=== PATIENT | male | born 1995 | race Caucasian/White ===

== ENCOUNTER 2021-03-23 13:07 | Outpatient (REF) | payer OTHER, SELFPAY ==
[2021-03-23 15:06] LABS: TSH reflex Free T4 2.65 uIU/mL (0.32-4.0)
[2021-03-23 15:14] LABS: Alanine Aminotransferase 34 U/L (0-40); Albumin Level 4.8 g/dL (3.5-5.0); Alkaline Phosphatase 59 U/L (39-117); Anion Gap 13 (12-20); Aspartate Amino Transferase 32 U/L (5-37); Bilirubin Total 0.9 mg/dL (0.0-1.0); Blood Urea Nitrogen 14 mg/dL (9-16); Calcium 9.6 mg/dL (8.4-10.2); Carbon Dioxide 28 mmol/L (22-29); Chloride 104 mmol/L (96-108); Cholesterol 176 mg/dL; Estimated Glomerular Filt Rate > 60; Glucose Fasting 73 mg/dL (60-99); HDL Cholesterol 67 mg/dL; LDL Cholesterol Calculated 93 mg/dl; Potassium 4.8 mmol/L (3.3-5.1); Sodium 140 mmol/L (135-145); Total Protein 7.8 g/dL (6.5-8.0); Triglycerides 83 mg/dL
== END 2021-03-23 13:08 | disposition home or self-care (01) ==
LOC: HO.HMGCLDS 13:07
PROVIDERS: PCP Nurse Practitioner Family; Visit Provider Nurse Practitioner Family
DX: Z00.00 Encounter for general adult medical examination without abnormal findings (principal)
CPT/HCPCS: 36415; 80053; 80061; 84443

== ENCOUNTER 2021-09-30 11:14 | Outpatient (REF) | payer OTHER, SELFPAY ==
[2021-10-04 15:40] LABS: Transglutaminase IgA <1.0 U/mL
[2021-10-04 22:47] LABS: Immunoglobulin A 145 mg/dL (47-310)
== END 2021-09-30 11:15 | disposition home or self-care (01) ==
LOC: HO.10HDL 11:14
PROVIDERS: PCP Nurse Practitioner Family; Visit Provider Internal Medicine Gastroenterology
DX: K58.9 Irritable bowel syndrome, unspecified (principal)
CPT/HCPCS: 36415; 82784; 83516

== ENCOUNTER 2021-12-28 15:19 | Outpatient (REF) | payer OTHER, SELFPAY ==
[2021-12-28 16:50] LABS: MANUAL DIFF FLAG NO
[2021-12-28 17:11] LABS: Alanine Aminotransferase 205 U/L (0-40); Albumin Level 4.9 g/dL (3.5-5.0); Alkaline Phosphatase 65 U/L (39-117); Anion Gap 14 (12-20); Aspartate Amino Transferase 67 U/L (5-37); Bilirubin Total 0.9 mg/dL (0.0-1.0); Blood Urea Nitrogen 16 mg/dL (9-16); Carbon Dioxide 27 mmol/L (22-29); Chloride 102 mmol/L (96-108); Estimated Glomerular Filt Rate > 60; Glucose Random 76 mg/dL (60-115); Potassium 4.4 mmol/L (3.3-5.1); Sodium 139 mmol/L (135-145); Total Protein 8.6 g/dL (6.5-8.0)
[2021-12-28 17:47] LABS: Basophils Percent Auto 0.4 % (0-2); Eosinophils Percent Auto 0.8 % (0-4); Hematocrit 43.4 % (42.0-52.0); Hemoglobin 14.5 g/dl (14.0-18.0); Imm Gran Abs Auto 0.01 X10*3/uL (0.00-0.03); Imm Gran Pct Auto 0.2 % (0.0-0.4); Lymphocytes Absolute Auto 2.3 X10*3/uL (1.2-4.9); Lymphocytes Percent Auto 46.5 % (20-40); Mean Corpuscular HGB Conc 33.4 g/dl (31.0-36.0); Mean Corpuscular Hemoglobin 29.3 pg (27.0-33.0); Mean Corpuscular Volume 87.7 fL (80.0-98.0); Mean Platelet Volume 9.3 fL (9.4-12.4); Monocytes Absolute Auto 0.5 X10*3/uL (0.1-1.2); Monocytes Percent Auto 9.6 % (2-11); Neutrophils Absolute Auto 2.1 x10*3/uL (2.0-8.3); Neutrophils Percent Auto 42.5 % (45-73); Platelet Count 228 X10*3/uL (160-400); Red Blood Count 4.95 X10*6/uL (4.60-5.80); Red Cell Distribution Width 14.4 % (11.0-16.0); White Blood Count 4.9 X10*3/uL (4.8-10.8)
== END 2021-12-28 15:20 | disposition home or self-care (01) ==
LOC: HO.HMGCLDS 15:19
PROVIDERS: Visit Provider Nurse Practitioner Family
DX: B27.90 Infectious mononucleosis, unspecified without complication (principal)
CPT/HCPCS: 36415; 80053; 85025

== ENCOUNTER 2022-02-07 12:19 | Outpatient (REF) | payer BC, SELFPAY ==
[2022-02-07 14:09] LABS: Alanine Aminotransferase 20 U/L (0-40); Albumin Level 4.8 g/dL (3.5-5.0); Alkaline Phosphatase 51 U/L (39-117); Aspartate Amino Transferase 24 U/L (5-37); Bilirubin Direct 0.3 mg/dL (0.0-0.5)
== END 2022-02-07 12:20 | disposition home or self-care (01) ==
LOC: HO.HMGCLDS 12:19
PROVIDERS: Visit Provider Nurse Practitioner Family
DX: R74.8 Abnormal levels of other serum enzymes (principal)
CPT/HCPCS: 36415; 80076

== ENCOUNTER 2022-12-05 08:10 | Outpatient (REF) | payer BC, SELFPAY ==
[2022-12-05 11:52] LABS: MANUAL DIFF FLAG NO
[2022-12-05 12:03] LABS: Appearance Urine Clear; Color Urine Yellow; Glucose Urine UA Negative (Negative); Leukocyte Esterase Urine Negative (Negative); Nitrite Urine Negative (Negative); Specific Gravity - Urine 1.025 (1.005-1.025); Urine Blood Negative (Negative); Urine Ketones Negative (Negative); Urine Protein Negative (Neg-Trace)
[2022-12-05 12:10] LABS: Basophils Percent Auto 0.5 % (0-2); Eosinophils Absolute Auto 0.2 X10*3/uL (0.0-0.4); Hematocrit 45.3 % (42.0-52.0); Hemoglobin 15.6 g/dl (14.0-18.0); Imm Gran Abs Auto 0.01 X10*3/uL (0.00-0.03); Imm Gran Pct Auto 0.3 % (0.0-0.4); Lymphocytes Absolute Auto 1.9 X10*3/uL (1.2-4.9); Lymphocytes Percent Auto 49.7 % (20-40); Mean Corpuscular HGB Conc 34.4 g/dl (31.0-36.0); Mean Corpuscular Hemoglobin 29.7 pg (27.0-33.0); Mean Corpuscular Volume 86.1 fL (80.0-98.0); Mean Platelet Volume 9.9 fL (9.4-12.4); Monocytes Absolute Auto 0.4 X10*3/uL (0.1-1.2); Monocytes Percent Auto 10.2 % (2-11); Neutrophils Absolute Auto 1.3 x10*3/uL (2.0-8.3); Neutrophils Percent Auto 35.3 % (45-73); Platelet Count 241 X10*3/uL (160-400); Red Blood Count 5.26 X10*6/uL (4.60-5.80); Red Cell Distribution Width 13.3 % (11.0-16.0); White Blood Count 3.7 X10*3/uL (4.8-10.8)
[2022-12-05 12:39] LABS: Alanine Aminotransferase 28 U/L (0-40); Albumin Level 4.8 g/dL (3.5-5.0); Alkaline Phosphatase 49 U/L (39-117); Anion Gap 13 (12-20); Aspartate Amino Transferase 31 U/L (5-37); Bilirubin Total 1.5 mg/dL (0.0-1.0); Blood Urea Nitrogen 16 mg/dL (9-16); Calcium 9.4 mg/dL (8.4-10.2); Carbon Dioxide 27 mmol/L (22-29); Chloride 104 mmol/L (96-108); Cholesterol 181 mg/dL; Estimated Glomerular Filt Rate > 60; Glucose Fasting 84 mg/dL (60-99); HDL Cholesterol 59 mg/dL; LDL Cholesterol Calculated 106 mg/dl; Potassium 4.4 mmol/L (3.3-5.1); Sodium 140 mmol/L (135-145); Total Protein 7.6 g/dL (6.5-8.0); Triglycerides 82 mg/dL
[2022-12-05 12:57] LABS: TSH reflex Free T4 4.71 uIU/mL (0.32-4.0)
[2022-12-05 14:05] LABS: Free T4 (Free Thyroxine) 0.98 ng/dL (0.71-1.85)
== END 2022-12-05 08:11 | disposition home or self-care (01) ==
LOC: HO.HMGCLDS 08:10
PROVIDERS: PCP Nurse Practitioner Family; Visit Provider Nurse Practitioner Family
DX: Z00.00 Encounter for general adult medical examination without abnormal findings (principal)
CPT/HCPCS: 36415; 80053; 80061; 81003; 84439; 84443; 85025

== ENCOUNTER 2023-03-18 07:56 | Outpatient (REF) | payer BC, SELFPAY ==
[2023-03-18 11:15] LABS: MANUAL DIFF FLAG NO
[2023-03-18 11:17] LABS: Basophils Percent Auto 0.7 % (0-2); Eosinophils Absolute Auto 0.2 X10*3/uL (0.0-0.4); Eosinophils Percent Auto 3.7 % (0-4); Hematocrit 43.8 % (42.0-52.0); Hemoglobin 15.2 g/dl (14.0-18.0); Imm Gran Abs Auto 0.01 X10*3/uL (0.00-0.03); Imm Gran Pct Auto 0.2 % (0.0-0.4); Lymphocytes Absolute Auto 1.9 X10*3/uL (1.2-4.9); Lymphocytes Percent Auto 45.1 % (20-40); Mean Corpuscular HGB Conc 34.7 g/dl (31.0-36.0); Mean Corpuscular Hemoglobin 30.7 pg (27.0-33.0); Mean Corpuscular Volume 88.5 fL (80.0-98.0); Mean Platelet Volume 9.9 fL (9.4-12.4); Monocytes Absolute Auto 0.4 X10*3/uL (0.1-1.2); Monocytes Percent Auto 8.5 % (2-11); Neutrophils Absolute Auto 1.7 x10*3/uL (2.0-8.3); Neutrophils Percent Auto 41.8 % (45-73); Platelet Count 207 X10*3/uL (160-400); Red Blood Count 4.95 X10*6/uL (4.60-5.80); Red Cell Distribution Width 13.3 % (11.0-16.0); White Blood Count 4.1 X10*3/uL (4.8-10.8)
[2023-03-18 11:52] LABS: TSH reflex Free T4 4.28 uIU/mL (0.32-4.0)
[2023-03-18 12:23] LABS: Free T4 (Free Thyroxine) 0.85 ng/dL (0.71-1.85)
== END 2023-03-18 07:57 | disposition home or self-care (01) ==
LOC: HO.HMGCLDS 07:56
PROVIDERS: PCP Nurse Practitioner Family; Visit Provider Nurse Practitioner Family
DX: D72.819 Decreased white blood cell count, unspecified (principal); R94.6 Abnormal results of thyroid function studies
CPT/HCPCS: 36415; 84439; 84443; 85025

== ENCOUNTER 2023-10-31 13:17 | Outpatient (AMB) | payer BC, SELFPAY ==
--- NOTE | 2023-10-31 13:19 | AM.OFFWIN_ITS ---
Intake Vital Signs 10/31/23 13:20 Weight 189 lb BP 120/80 Blood Pressure Location Rt brachial Position Sitting Pulse 66 Pulse Source Pulse Oximeter Temp 98.1 F Temp Source Oral Pulse Oximetry (%) 98 Oxygen Delivery Method Room Air Intake Visit Reasons: EP congestion sinus pressure [phone] Intake Note: Patient here for sinus congestion that has been present for about 4 days. Patient Tobacco Use Status: Never used Tobacco Allergies amoxicillin Allergy (Unknown, Verified 10/31/23 13:20) Anaphylaxis penicillin V Allergy (Unknown, Verified 10/31/23 13:20) Anaphylaxis Cefzil Allergy (Unknown, Uncoded 10/31/23 13:20) Anaphylaxis Do you need a note to return to daycare/school/sports/work: No HPI HPI Comments History of Present Illness Details This is a 28-year-old male with no stated past medical history presenting for evaluation of sinus congestion that he has had for the past 4 days. Patient denies having any fevers, chills, ear pain, sore throat, difficulty swallowing or shortness a breath but does report an intermittent cough. Patient has not taken any medication for treatment of his symptoms. [facility] Social History Housing: House Alcohol intake: current Alcohol intake frequency: a few times a month Patient Tobacco Use Status: Never used Tobacco e-Cigarette/Vaping Use: Never Used Second Hand Smoke Exposure: No service: No Current occupational status: employed Current occupation: [employer] Current occupational exposures/hazards: No Cognitive needs: No Hearing needs: No Vision needs: No Review of Systems Const All systems reviewed & are unremarkable except as noted in HPI and below Reports as per HPI Eyes Reports as per HPI ENT Denies otalgia, Denies facial pain, Reports sinus pressure and Denies sore throat Card Reports no additional complaints Resp Reports no additional complaints Reports no additional complaints Musc Reports no additional complaints Skin/Breast Reports system reviewed and no additional complaints, except as documented Neuro Reports no additional complaints Psych Reports no additional complaints Physical Exam Vital Signs: Last Vital Signs Temp 98.1 F 10/31/23 13:20 Pulse 66 10/31/23 13:20 BP 120/80 10/31/23 13:20 Pulse Ox 98 10/31/23 13:20 Oxygen Delivery Method Room Air 10/31/23 13:20 Afebrile Const General: cooperative, healthy appearing, comfortable, no acute distress, well developed, alert and awake; No ill appearing Nutritional Appearance: average body habitus Orientation/consciousness: patient oriented x3 Limitations: no limitations HEENT Head: Yes normal to inspection and Yes normocephalic Ears: hearing grossly normal bilaterally, external ears normal, right TM abnormal (Right TM bulging without erythema; no fluid level), TM normal on the left and EAC's normal General nose exam: Normal external nose present Face and sinus: Yes normal facial exam and Yes sinuses nontender Mouth: Normal oral and palatal mucosa present and moist mucous membranes Teeth and gingiva: dentition normal Throat: Yes posterior oropharynx normal and No postnasal drainage Eyes Eyelids: Yes eyelids normal Conjunctivae: conjunctivae normal Sclerae: sclerae normal Corneas: corneas normal Pupils: Equal, round and reactive pupils present EOM: EOMs intact bilaterally Neck Lymphatic: no lymphadenopathy noted Resp Effort & Inspection: normal respiratory effort, able to speak in complete sentences, no respiratory distress and no use of accessory muscles Auscultation: clear to auscultation bilaterally Cardio Rate: regular rate Rhythm: regular rhythm Skin General skin exam: no rashes or lesions noted Neuro General: patient oriented x3 Cranial nerves: Yes Equal, round and reactive pupils present Psych Appearance: grossly normal Mental Status: mental status grossly normal Insight: Good insight present (Psych) Judgement: Good judgement present (Psych) Assessment & Plan Assessment & Plan (1) Acute sinusitis: Comment: No indication symptoms are bacterial in nature; patient is afebrile. Code(s): J01.90 - Acute sinusitis, unspecified Qualifiers: Recurrence: non-recurrent Sinusitis location: frontal Qualified Code(s): J01.10 - Acute frontal sinusitis, unspecified Plan: Ibuprofen or Aleve as needed; nasal saline spray daily. Coding Level of Care Code New Pt Level 3 (67276) Diagnoses Acute non-recurrent frontal sinusitis J01.10 Recurrence: non-recurrent Sinusitis location: frontal Time Spent (min) 20
[2023-10-31 13:20] VITALS: BP 120/80; PULSE 66; TEMP 36.7; O2SAT 98
== END 2023-10-31 13:55 | disposition home or self-care (01) ==
PROVIDERS: PCP Nurse Practitioner Family; Visit Provider Physician Assistant
DX: J01.10 Acute frontal sinusitis, unspecified (principal)
CPT/HCPCS: 99203

== ENCOUNTER 2024-03-13 08:09 | Outpatient (AMB) | payer BC, SELFPAY ==
--- NOTE | 2024-03-13 08:10 | MHC.PC.OV ---
Vital Signs 03/13/24 08:12 Weight 179 lb BP 110/68 Blood Pressure Location Rt brachial Position Sitting Pulse 53 Pulse Source Pulse Oximeter Pulse Oximetry (%) 100 Oxygen Delivery Method Room Air Intake Visit Reasons: Annual Pe resched Intake Note: Patient here for physical exam. Allergies amoxicillin Allergy (Unknown, Verified 03/13/24 08:18) Anaphylaxis penicillin V Allergy (Unknown, Verified 03/13/24 08:18) Anaphylaxis Cefzil Allergy (Unknown, Uncoded 03/13/24 08:18) Anaphylaxis Medication List - Last Reconciled 03/13/24 by FABIEN Chew escitalopram oxalate 10 mg PO DAILY 90 days Tobacco use date assessed: 03/13/24 Dental Screening Dental Screen Date: 03/13/24 Did you have a dental visit in the last 12 months?: Yes Did you have a dental problem in the last 6 months where you did not have access to dental care?: No Was dental information given to patient?: Patient has dentist HPI Annual Pe resched HPI Details Pt is here for a PE. Labs have been ordered. ON LICENSE OF [facility] Social History Housing: House Alcohol intake: current Alcohol intake frequency: a few times a month Patient Tobacco Use Status: Never used Tobacco e-Cigarette/Vaping Use: Never Used Second Hand Smoke Exposure: No service: No Current occupational status: employed Current occupation: [employer] Current occupational exposures/hazards: No Cognitive needs: No Hearing needs: No Vision needs: No Family/Social History Household Members: father: MS Questionnaire PHQ-9 Over the last 2 weeks, how often have you been bothered by any of the following problems? 1. Little interest or pleasure in doing things: not at all 2. Feeling down, depressed, or hopeless: not at all 3. Trouble falling or staying asleep, or sleeping too much: not at all 4. Feeling tired or having little energy: several days 5. Poor appetite or overeating: not at all 6. Feeling bad about yourself - or that you are a failure or have let yourself or your family down: not at all 7. Trouble concentrating on things, such as reading the newspaper or watching television: more than half the days 8. Moving or speaking so slowly that other people could have noticed. Or the opposite - being so fidgety or restless that you have been moving around a lot more than usual: not at all 9. Thoughts that you would be better off or of hurting yourself in some way: not at all Total score: 3 Depression Screening Interpretation: Negative Depression Screening Done: Yes 60358 - PHQ-9 Billing: Yes Source: Developed by Drs. Gonzalo Whiting, Nona Salinas, Scotty Coates and colleagues, with an educational karina from [employer]. Thrive Questionnaire Date Thrive assessed: 12/05/22 I am a: Patient What is your living situation today?: I have a steady place to live Within the past 12 months, did the food you bought not last and you didn't have the money to get more?: Never true Within the past 12 months, did you worry whether your food would run out before you got money to buy more?: Never true Do you have trouble paying for medicines?: No Do you have trouble getting transportation to medical appointments?: No Do you have trouble paying your heating and electricity bill?: No Do you have trouble taking care of your child, family member or friend?: No Do you have trouble with day-to-day activities such as bathing, preparing meals, shopping, managing finances, etc.?: No Are you currently unemployed and looking for a job?: No Are you interested in more education?: No Currently or been in a relationship where the following occur: no concerns reported and I choose not to answer this question THRIVE Score: 0 AUDIT C Alcohol Use Questionnaire (AUDIT-C) 1. How often do you have a drink containing alcohol?: 2-4 times a month 2. How many drinks containing alcohol do you have on a typical day when you are drinking?: 3 or 4 3. How often do you have six or more drinks on one occasion?: Less than monthly Total Score: 4 FUAD-7 AMB Questionnaire FUAD-7 Date FUAD - 7 assessed: 03/13/24 Feeling nervous, anxious, or on edge: 1 = Several days Not being able to stop or control worryin = Not at all Worrying too much about different things: 1 = Several days Trouble relaxin = Not at all Being so restless that it is hard to sit still: 1 = Several days Becoming easily annoyed or irritable: 0 = Not at all Feeling afraid as if something awful might happen: 0 = Not at all Total FUAD-7 score (0-4 normal; 5-9 mild; 10-14 moderate; 15-21 severe): 3 Source: Developed by Drs. Gonzalo Whiting, Nona Salinas, Scotty Coates and colleagues, with an educational karina from [employer]. FUAD-7 Assessment Billing FUAD-7 Assessment Tool: FUAD-7 Assessment 54460 Review of Systems Const Denies chills and Denies fever(s) Eyes Denies blurry vision ENT Denies vertigo, Denies dizziness and Denies sore throat Card Denies chest pain at rest, Denies chest pain with activity, Denies diaphoresis, Denies dyspnea and Denies dyspnea on exertion Resp Denies cough, Denies dyspnea, Denies dyspnea on exertion and Denies wheezing GI Denies abdominal pain, Denies melena, Denies hematochezia, Denies constipation, Denies diarrhea and Denies loose stools Denies hematuria Musc Denies numbness and Denies tingling Skin/Breast Denies lesions Neuro Denies vertigo, Denies dizziness, Denies numbness and Denies tingling Psych Denies anxiety, Denies depression, Denies homicidal ideation, Denies suicidal ideation and Denies other (substance abuse) Aller/Immun Denies wheezing Physical exam (Primary Care) Vital Signs: Last Vital Signs Pulse 53 03/13/24 08:12 BP 110/68 03/13/24 08:12 Pulse Ox 100 03/13/24 08:12 Oxygen Delivery Method Room Air 03/13/24 08:12 Tobacco/Smoking Status: Tobacco use Status Tobacco use date assessed 03/13/24 03/13/24 08:15 Patient Tobacco Use Status Never used Tobacco 03/13/24 08:12 e-Cigarette/Vaping Use Never Used 03/13/24 08:12 Depression Screening Interpretation: Negative Thrive Assessment: Date of Thrive Assessment Date Thrive assessed 12/05/22 03/13/24 08:12 Currently or been in a relationship where the following occur: no concerns reported and I choose not to answer this question Const General: cooperative Nutritional Appearance: well nourished Orientation/consciousness: patient oriented x3 HENMT Other: cerumen noted to left ear, after ear lavage slight residual cerumen Head: Yes normal to inspection, Yes normocephalic and Yes atraumatic Ears: TM normal on the right Eyes General: appearance normal, both eyes and all related structures Alignment and Position: alignment normal and position normal Neck Neck: Yes normal visual inspection and Yes no lymphadenopathy Thyroid: Thyroid normal Resp Effort & Inspection: normal respiratory effort Auscultation: clear to auscultation bilaterally Cardio Rate: regular rate Rhythm: regular rhythm Heart sounds: S1 normal heart sound present, S2 normal heart sound present and no murmurs GI Palpation (GI): Soft to palpation and nontender Auscultation: normal bowel sounds Male General Exam: Yes normal external exam Penis: normal penis Scrotum: scrotum normal, testes descended bilaterally and no inguinal hernias Testes: no testicular mass Skin Rashes: no rashes Neuro General: patient oriented x3, moves all extremities, no focal motor deficits and deep tendon reflexes 2+ bilaterally Romberg Test: Negative Psych Appearance: grossly normal Mental Status: mental status grossly normal Speech and movement: Normal speech and movement present Affect: normal affect Attitude: cooperative Thought process: Normal thought process present Thought content: Normal thought content present Insight: Good insight present (Psych) Judgement: Good judgement present (Psych) Office Procedures Cerumen Removal From which ear canal was the cerumen removed: left Removal: irrigation Notes: patient tolerated procedure well, no complications and ear canal clear (scant residual cerumen) 98706-[id number] Irrigation/Lavage Assessment and Plan Assessment & Plan (1) Physical exam: Code(s): Z00.00 - Encounter for general adult medical examination without abnormal findings Plan: Labs already ordered (2) Cerumen debris on tympanic membrane: Code(s): H61.20 - Impacted cerumen, unspecified ear Plan: scant residual cerumen(left), recommended ear wax removal kit. Plan The patient agreed to the use of a medical leader for this encounter. Scribed for FABIEN Vila by Jessi Rinaldi medical leader, on 03/13/2024 at 08:20 EST. Coding Level of Care Code Est Pt Prev Care 18-39y(26791) Diagnoses Physical exam Z00.00 Cerumen debris on tympanic membrane H61.20 CPT Codes Office Procedure - CPT: 54966-Peb Irrigation/Lavage ([id number]) Additional Codes FUAD-7 Assessment Billing - FUAD-7 Assessment Tool: FUAD-7 Assessment 33384 ([id number])
[2024-03-13 08:12] VITALS: BP 110/68; PULSE 53; O2SAT 100
== END 2024-03-13 08:50 | disposition home or self-care (01) ==
PROVIDERS: PCP Nurse Practitioner Family; Visit Provider Nurse Practitioner Family
DX: Z00.00 Encounter for general adult medical examination without abnormal findings (principal); H61.22 Impacted cerumen, left ear
CPT/HCPCS: 69209; 99395

== ENCOUNTER 2024-03-13 08:52 | Outpatient (REF) | payer BC, SELFPAY ==
[2024-03-13 10:17] LABS: MANUAL DIFF FLAG NO
[2024-03-13 10:40] LABS: Appearance Urine Clear; Color Urine Yellow; Glucose Urine UA Negative (Negative); Leukocyte Esterase Urine Negative (Negative); Nitrite Urine Negative (Negative); Urine Blood Negative (Negative); Urine Ketones Negative (Negative); Urine Protein Negative (Neg-Trace)
[2024-03-13 10:47] LABS: Basophils Percent Auto 0.8 % (0-2); Eosinophils Absolute Auto 0.1 X10*3/uL (0.0-0.4); Eosinophils Percent Auto 3.2 % (0-4); Hematocrit 45.9 % (42.0-52.0); Hemoglobin 15.4 g/dl (14.0-18.0); Imm Gran Abs Auto 0.01 X10*3/uL (0.00-0.03); Imm Gran Pct Auto 0.3 % (0.0-0.4); Lymphocytes Absolute Auto 1.6 X10*3/uL (1.2-4.9); Lymphocytes Percent Auto 41.7 % (20-40); Mean Corpuscular HGB Conc 33.6 g/dl (31.0-36.0); Mean Corpuscular Hemoglobin 29.1 pg (27.0-33.0); Mean Corpuscular Volume 86.6 fL (80.0-98.0); Mean Platelet Volume 9.6 fL (9.4-12.4); Monocytes Absolute Auto 0.3 X10*3/uL (0.1-1.2); Monocytes Percent Auto 7.8 % (2-11); Neutrophils Absolute Auto 1.7 x10*3/uL (2.0-8.3); Neutrophils Percent Auto 46.2 % (45-73); Platelet Count 244 X10*3/uL (160-400); Red Cell Distribution Width 13.4 % (11.0-16.0); White Blood Count 3.7 X10*3/uL (4.8-10.8)
[2024-03-13 10:56] LABS: Alanine Aminotransferase 25 U/L (0-40); Albumin Level 4.7 g/dL (3.5-5.0); Alkaline Phosphatase 45 U/L (39-117); Anion Gap 10 (12-20); Aspartate Amino Transferase 24 U/L (5-37); Bilirubin Total 0.9 mg/dL (0.0-1.0); Blood Urea Nitrogen 17 mg/dL (9-16); Calcium 9.8 mg/dL (8.4-10.2); Carbon Dioxide 29 mmol/L (22-29); Chloride 106 mmol/L (96-108); Cholesterol 191 mg/dL (<200); Estimated Glomerular Filt Rate > 60; Glucose Fasting 82 mg/dL (60-99); HDL Cholesterol 57 mg/dL (>40); LDL Cholesterol Calculated 118 mg/dL (<100); Potassium 4.7 mmol/L (3.3-5.1); Sodium 140 mmol/L (135-145); Total Protein 7.8 g/dL (6.5-8.0); Triglycerides 84 mg/dL (<150)
[2024-03-13 11:16] LABS: TSH reflex Free T4 3.01 uIU/mL (0.32-4.0)
[2024-03-14 18:44] LABS: Thyroid Peroxidase Antibodies 1 IU/mL (<9)
== END 2024-03-13 08:53 | disposition home or self-care (01) ==
LOC: HO.HMGCLDS 08:52
PROVIDERS: PCP Nurse Practitioner Family; Visit Provider Nurse Practitioner Family
DX: Z00.00 Encounter for general adult medical examination without abnormal findings (principal); R79.89 Other specified abnormal findings of blood chemistry; D72.819 Decreased white blood cell count, unspecified
CPT/HCPCS: 36415; 80053; 80061; 81003; 84443; 85025; 86376

== ENCOUNTER → 2024-04-08 12:58 | Outpatient (BNV) | payer BC, SELFPAY | PROVIDERS: PCP Nurse Practitioner Family; Referring Provider Nurse Practitioner Family; Visit Provider Internal Medicine | DX: D72.819 Decreased white blood cell count, unspecified (principal) | CPT/HCPCS: 99204 ==

== ENCOUNTER 2025-02-26 12:21 | Outpatient (REF) | payer BC, SELFPAY ==
--- OUTSIDE RECORDS SUMMARY | 2025-02-26 13:12 | XMS_ITS | Patient Health Record ---
Author Organization [facility] Address [address] [place] [phone] Care Team Providers Care Cushion Cover Inspector Name Role Phone Bart HOWELL, [facility] Primary [facility] Provider Gerald Hays Jr Allergies Allergen (clinical drug ingredient) Drug/Non Drug Allergy documented on EMR Reaction Allergy Type Onset Date Status Penicillin Unknown Drug Allergy Active Cefzil Unknown Drug Allergy Active Reason For Referral No Information Medications Medication SIG (Take, Route, Frequency, Duration) Notes Start Date End Date Status Probiotic - as directed Orally Active MiraLax - 1 packet mixed with 8 ounces of fluid Orally as needed Active Dicyclomine HCl 20 MG 1 tablet Orally 2- 4 times a day Not-Taking Multivitamin Adult - as directed Orally Active Escitalopram Oxalate 10 MG TK 1 T PO QD Oral for 30 Active Vitamin D 2000 UNIT 1 tablet Orally Once a day for 30 day(s) Active Immunizations Vaccine Route Administration Date Status Comme nts Influenza Unknown 08/29/2018 Administered Influenza Unknown 07/09/2019 Administered Influenza Unknown 08/31/2022 Administered Influenza Unknown 09/27/2021 Refused Influenza Unknown 11/01/2023 Refused Social History Tobacco Use: Social History Observation Description Date Details (start date - stop date) Never Smoker NA - NA Tobacco Use/Smoking Question Answer Notes Patient is a nonsmoker Alcohol Screen Question Answer Notes Did you have a drink containing alcohol in the p ast year? No Points 0 Interpretation Negative Section Notes: 04/03/19 he recently graduate d from [employer] with a degree in finance and business management. He was looking for a job in the [facility] and is moving to [place] in April. 04/03/19 he recently graduate d from [employer] with a degree in finance and [employer] management. He was looking for a job in the [facility] and is moving to [place] in April./ update 03/2020 works in [employer] 04/03/19 he recently graduate d from [employer] with a degree in [place] and [employer] management. He was looking for a job in the [facility] and is moving to [place] in April./ update 03/2020 works in [place] 04/03/19 he recently graduate d from [employer] with a degree in [place] and [employer] management. He was looking for a job in the [facility] and is moving to [place] in April./ update 03/2020 works in [place] 04/03/19 he graduated from [employer] with a degree in [place] and [employer] management. He was looking for a job in the [facility] and is moving to [place] in April./ update 03/2020 works in [place]. 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 Problems Problem Type SNOMED Code ICD Code Onset Dates Problem Status W/U Status Risk Notes Problem [id number] Right lower quadrant pain (R10.31) Active confirmed Problem [id number] Abdominal pain, right upper quadrant (R10.11) Active confirmed Problem [id number] Irritable bowel syndrome with constipation (K58.1) Active confirmed Problem 24046966 Irritable bowel syndrome with both constipation and diarrhea (K58.2) Active confirmed Encounters Encounter Location Date Provider Diagnosis [facility] [address] [facility] [address] [place] [phone] 02/24/2025 Gerald Holbrook Jr Abdominal pain R10.9 Assessments Encounter Date Diagnosis (ICD Code) Assessment Notes Treatment Notes Treatment Clinical Notes Section Notes 02/24/2025 Abdominal pain (ICD-10 - R10.9) Plan Of Treatment Pending Test Test Name Order Date LIVER PROFILE 02/24/2025 CRP 02/24/2025 CBC w/o DIFF 02/24/2025 SED RATE (ESR) 02/24/2025 US ABD 02/24/2025 Lipase 02/24/2025 Next Appt Details Provider Name:Gerald abebe Jr, 10/29/2025 09:00:00 AM, [address], [address], [place], [address], Insurance Providers Payer Name Payer Address Payer Phone Subscriber Number Group Number Insured Name Patient Relationship to Insured Coverage Start Date Coverage End Date [facility] [address] [place], [place] [phone] [phone] [id number] CAROLS SCHILLING Self - patient is the insured Medical (General) History Medical History History ICD Code Irritable bowel syndrome pneumonia x2 2018 Surgical History Surgery Date(Month/Year) tonsillectomy
--- OUTSIDE RECORDS SUMMARY | 2025-02-26 13:13 | XMS_ITS | Clinical Summary ---
Author Organization [facility] ity Address [address] [place] [address] Care Team Providers Care Target Setter Name Role Phone Unavailable Primary Care Provider Unavailabl e Social History Tobacco Use Types Packs/Day Years Used Date Smoking Tobacco: Never Assessed Sex and Gender Information Value Date Recorded Sex Assigned at Not on file Legal Sex Male 5:49 AM EST Gender Identity Not on file Sexual Orientation Not on file Plan of Treatment Health Maintenance Due Date Last Done Comments DTaP,Tdap,and Td Vaccines (1 - Tdap) 2015 Hepatitis B Vaccines (1 of 3 - 19+ 3-dose series) 2015 COVID-19 Vaccine (2023-2 5 season) 2024 Influenza Vaccine (Season Ended) 2025 HIB Vaccines Aged Out No longer eligi ble based on patient's age to complete this topic HPV Vaccines Aged Out No longer eligi ble based on patient's age to complete this topic Hepatitis A Vaccines Aged Out No long er eligible based on patient's age to complete this topic IPV Vaccines Aged Out No longer eligi ble based on patient's age to complete this topic MMR Vaccines Aged Out No longer eligi ble based on patient's age to complete this topic Meningococcal ACWY Vaccine Aged Out N o longer eligible based on patient's age to complete this topic Meningococcal B Vaccine Aged Out No l onger eligible based on patient's age to complete this topic Pneumococcal Vaccine: Pediat rics (0 to 5 Years) and At-Risk Patients (6 to 64 Years) Aged Out No longer eligible b ased on patient's age to complete this topic RSV Immunization Patients Un breezy 20 months Aged Out No longer eligible b ased on patient's age to complete this topic Varicella Vaccines Aged Out No longer eligible based on patient's age to complete this topic
--- OUTSIDE RECORDS SUMMARY | 2025-02-26 13:13 | XMS_ITS ---
Author Organization [facility] Address [address] [place] [address] [place] [phone] Care Team Providers Care Facility Planner Name Role Phone Bart HOWELL, [facility] Primary [facility] Provider Berenice Holbrook Jr, Gerald Nicholas REASON FOR VISIT please update the patient's insurance Encounters Encounter Location Date Provider Diagnosis [facility] [address] [place] [address] [place] [phone] 10/18/2023 Gerald Holbrook Jr Plan Of Treatment Next Appt Details Provider Name:Gerald abebe Jr, 10/29/2025 09:00:00 AM, [address] [place] [address], [address], [place], [phone], Progress Notes * CARLOS SCHILLINGDOB:1995 ( 28 yo M)Acc No.[id number]:10/18/2023 Patient:?CARLOS SCHILLING :1995???Age:28 Y???Sex:Male Address:[address] [place] [address], [id number] * true * Date:? Generated for Jasoni brayan/Esteban/eTransmitting on:?02/26/2025 01:13 PM EDT
--- OUTSIDE RECORDS SUMMARY | 2025-02-26 13:13 | XMS_ITS ---
Author Organization [facility] Address [address] [place] [address] Care Team Providers Care Licensed Psychologist Manager Name Role Phone Bart HOWELL, [facility] Primary Care Provider Gerald Hays Jr Unavailable Allergies Allergen (clinical drug ingredient) Drug/Non Drug Allergy documented on EMR Reaction Allergy Type Onset Date Status Penicillin Unknown Drug Allergy Active Cefzil Unknown Drug Allergy Active REASON FOR VISIT Patient presents today for IBS Medications Medication SIG (Take, Route, Frequency, Duration) Notes Start Date End Date Status Probiotic - as directed Orally Active Dicyclomine HCl 20 MG 1 tablet Orally 2- 4 times a day Not-Taking Multivitamin Adult - as directed Orally Active Escitalopram Oxalate 10 MG TK 1 T PO QD Oral for 30 Active Vitamin D 2000 UNIT 1 tablet Orally Once a day for 30 day(s) Active MiraLax - 1 packet mixed with 8 ounces of fluid Orally as needed Active Immunizations Vaccine Route Administration Date Status Comme nts Influenza Unknown 11/01/2023 Refused Social History Tobacco Use: Social History Observation Description Date Details (start date - stop date) Never Smoker NA - NA Tobacco Use/Smoking Question Answer Notes Patient is a nonsmoker Alcohol Screen Question Answer Notes Did you have a drink containing alcohol in the p ast year? No Points 0 Interpretation Negative Section Notes: 04/03/19 he graduated from [employer] with a degree in finance and business management. He was looking for a job in the [place] area and is moving to [place] in April./ update 03/2020 works in [place]. 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 Vital Signs Temperature 97.5 degrees Fahrenheit 11/01/19 Blood pressure systolic 000 mm Hg 11/01/19 24 Blood pressure diastolic 00 mm Hg 024 Height 71 in 11/01/2023 Weight 182 lbs 11/01/2023 BMI 25.38 kg/m2 11/01/2023 Encounters Encounter Location Date Provider Diagnosis [facility] [address] [place] [address] 11/01/2023 Gerald Holbrook Jr Irritable bowel syndrome with both constipation and diarrhea K58.2 Assessments Encounter Date Diagnosis (ICD Code) Assessment Notes Treatment Notes Treatment Clinical Notes Section Notes 11/01/2023 Irritable bowel syndrome with both constipation and diarrhea (ICD-10 - K58.2) Irritable bowel syndrome material was printed At this time, he is doing well. He will continue his present regimen. We discussed diet. We have made no changes in his medications and no laboratory studies are necessary at this time. Followup in 2 years. Plan Of Treatment Treatment Notes Assessment Notes Irritable bowel syndrome wit h both constipation and diarrhea Irritable bowel syndrome material was printed Next Appt Details Follow Up: 2 years, Reason: Provider Name:Gerald abebe Jr, 10/29/2025 09:00:00 AM, [address], [address], [place], [address], Progress Notes * GREGG SCHILLINGB:1995 ( 28 yo M)Acc No.[id number]:11/01/2023 Progress Notes Patient:?CARLOS SCHILLING Provider:?Gerald Holbrook MD :1995???Age:28 Y???Sex:Male Sushant e:11/01/2023 Address:[address] [place] [address] Pcp:Jane Arriaga MD Subjective: * Chief Complaints: * ???1. Patient presents today for IBS. * HPI: ???New symptom(s):? The patient is a pleasant 28-year-old man seen today in followup of irritable bowel syndrome. He was last seen in October 2022. Since that time, he's been doing well. He continues on probiotics but has not had to use dicyclomine. He reports occasional flareups of symptoms with mucus in the bowel movements and some constipation. Overall his stomach is generally good over the last year. He's had no problems with rectal bleeding, rectal pain, abdominal pain or other change in his bowel habits. He tries to follow a good diet. He is exercising and weight has come down about 10 pounds from last year. * Medical History:?Irritable b owel syndrome, Pneumonia x2 2018. * Surgical History:?tonsillect dana . * Family History:?Father: irma gallego MS.?Mother: alive.?Maternal Grand Father: alive, diagnosed with Colon cancer.? sister IBD possible celiac. No family history of liver cancer. * Social History:?Tobacco Use:?Tobacco Use/Smoking?Patient is a?nonsmoker.?Drugs/Alcohol:?Alcohol Screen?Did you have a drink containing alcohol in the past year??No,?Points?0,?Interpretation?Negative.?Miscellaneous:?Marital status: single. Occupation: business finance. ???04/03/19 he graduated from [employer] with a degree in finance and business management. He was looking for a job in the [place] area and is moving to [place] in April./ update 03/2020 works in [place]. 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 * Medications:?Taking MiraLax - Packet 1 packet mixed with 8 ounces of fluid Orally as needed, Taking Probiotic - Capsule as directed Orally , Taking Vitamin D 2000 UNIT Tablet 1 tablet Orally Once a day, Taking Escitalopram Oxalate 10 MG Tablet TK 1 T PO QD Oral , Taking Multivitamin Adult - Tablet as directed Orally , Not-Taking/PRN Dicyclomine HCl 20 MG Tablet 1 tablet Orally 2-4 times a day, Medication List reviewed and reconciled with the patient * Allergies:?Penicillin, Cefzi l. Objective: * Vitals:?Wt: 182 lbs, Ht: 71 in, BMI:25.38 Index, BP: 000/00 mm Hg, Temp: 97.5. * Examination: ???General Examination: ???On examination today, he appears well. Skin is anicteric. Lungs are clear. Heart shows regular rate and rhythm. Abdomen is soft without focal masses or tenderness. Extremities are without edema. Assessment: * Assessment: 1.?Irritable bowel syndrome with both constipation and diarrhea - K58.2 (Primary)? At this time, he is doing we ll. He will continue his present regimen. We discussed diet. We have made no changes in his medications and no laboratory studies are necessary at this time. Followup in 2 years. Plan: * Treatment: * Immunizations:? Influenza (Not administered - Refused: Patient decision) * Procedure Codes:?G9903 Pt sc rn tbco id as non user, G9745 DOC RSN FOR NOT SCREEN/REC F/U HBP * Preventive Medicine:? ??Counseling:?Care goal follow-up plan:?Above Normal BMI Follow-up?Giving encouragement to exercise,?BMI management provided?Yes.? * Follow Up:?2 years * * Sign off status: Completed true * Provider:?Gerald Holbrook MD Date:?0 11/01/2023 Generated for Artisofthipolito schmidt/Esteban/eTransmitting on:?02/26/2025 01:12 PM EDT History and Physical Notes * HPI (History of Present Illness) Category Sub-Category Detail Notes Category Not es New symptom(s) The patient i s a pleasant 28-year-old man seen today in followup of irritable bowel syndrome. He was last seen in October 2022. Since that time, he's been doing well. He continues on probiotics but has not had to use dicyclomine. He reports occasional flareups of symptoms with mucus in the bowel movements and some constipation. Overall his stomach is generally good over the last year. He's had no problems with rectal bleeding, rectal pain, abdominal pain or other change in his bowel habits. He tries to follow a good diet. He is exercising and weight has come down about 10 pounds from last year. Examination Category Sub-Category Detail Notes Category Not es General Examination On exami nation today, he appears well. Skin is anicteric. Lungs are clear. Heart shows regular rate and rhythm. Abdomen is soft without focal masses or tenderness. Extremities are without edema.
--- OUTSIDE RECORDS SUMMARY | 2025-02-26 13:13 | XMS_ITS ---
Author Organization [facility] Address [address] [place] [address] [place] [address] Care Team Providers Care Chro Name Role Phone Bart HOWELL, [facility] Primary Care Provider Berenice Holbrook Jr, Gerald Nicholas REASON FOR VISIT RLQ pain Encounters Encounter Location Date Provider Diagnosis [facility] [address] [place] [address] [place] [address] 02/24/2025 Gerald Holbrook Jr Abdominal pain R10.9 [...] Provider Name:Gerald abebe Jr, 10/29/2025 09:00:00 AM, [address] [place] [address], [address], [place], [address], Progress Notes * BERTHA SCHILLING:1995 ( 29 yo M)Acc No.[id number]:02/24/2025 Patient:?CARLOS SCHILLING :1995???Age:29 Y???Sex:Male Address:[address] [place] [address], [address] Subjective: * Chief Complaints: * ???RLQ pain * Medical History:? * Surgical History:? * Hospitalization/Major Diagno stic Procedure:? * Medications:? Objective: * Vitals:? * Physical Examination:? Assessment: * Assessment: 1.?Abdominal pain - R10.9 (P rimary)??? Plan: * Treatment: * * Procedure Codes:? * true * Date:? Generated for Renetta schmidt/Esteban/eTjfsmitting on:?02/26/2025 01:13 PM EDT
[2025-02-26 16:32] LABS: MANUAL DIFF FLAG NO
[2025-02-26 16:36] LABS: Basophils Percent Auto 0.8 % (0-2); Eosinophils Absolute Auto 0.1 X10*3/uL (0.0-0.4); Eosinophils Percent Auto 2.7 % (0-4); Hematocrit 42.5 % (42.0-52.0); Hemoglobin 14.7 g/dl (14.0-18.0); Imm Gran Abs Auto 0.01 X10*3/uL (0.00-0.03); Imm Gran Pct Auto 0.3 % (0.0-0.4); Lymphocytes Absolute Auto 1.5 X10*3/uL (1.2-4.9); Lymphocytes Percent Auto 40.9 % (20-40); Mean Corpuscular HGB Conc 34.6 g/dl (31.0-36.0); Mean Corpuscular Hemoglobin 29.8 pg (27.0-33.0); Mean Platelet Volume 9.9 fL (9.4-12.4); Monocytes Absolute Auto 0.3 X10*3/uL (0.1-1.2); Monocytes Percent Auto 8.3 % (2-11); Neutrophils Absolute Auto 1.8 x10*3/uL (2.0-8.3); Platelet Count 241 X10*3/uL (160-400); Red Blood Count 4.94 X10*6/uL (4.60-5.80); Red Cell Distribution Width 13.4 % (11.0-16.0); White Blood Count 3.7 X10*3/uL (4.8-10.8)
[2025-02-26 17:01] LABS: Alanine Aminotransferase 32 U/L (0-40); Alkaline Phosphatase 49 U/L (39-117); Aspartate Amino Transferase 32 U/L (5-37); Bilirubin Direct 0.3 mg/dL (0.0-0.5); Bilirubin Total 0.7 mg/dL (0.0-1.0); C Reactive Protein < 0.04 mg/dL (< or = 0.50); Lipase 22 U/L (8-78); Total Protein 7.8 g/dL (6.5-8.0)
[2025-02-26 17:33] LABS: Erythrocyte Sedimentation Rate 2 MM/HR (0-15)
== END 2025-02-26 12:22 | disposition home or self-care (01) ==
LOC: HO.HMGCLDS 12:21
PROVIDERS: PCP Nurse Practitioner Family; Visit Provider Internal Medicine Gastroenterology
DX: R10.9 Unspecified abdominal pain (principal)
CPT/HCPCS: 36415; 80076; 83690; 85025; 85652; 86140

== ENCOUNTER → 2025-03-21 11:30 | Outpatient (BNV) | payer BC, SELFPAY | PROVIDERS: PCP Nurse Practitioner Family; Visit Provider Radiology Diagnostic Radiology | DX: R10.9 Unspecified abdominal pain (principal) | CPT/HCPCS: 76700 ==

== ENCOUNTER 2025-03-21 11:32 | Outpatient (REF) | payer BC, SELFPAY ==
--- NOTE | ~2025-03-21 | US_ITS ---
CLINICAL HISTORY: abd. pain US abdomen complete Comparison: None Findings: The visualized pancreas is normal. The aorta and inferior vena cava are normal caliber. The liver is normal in size and echotexture. There is no intrahepatic bile duct dilatation. The common duct is 1.6 mm in diameter. The gallbladder is normal. There is no sonographic Pereyra sign. The main portal vein is antegrade. The right kidney is 12.0 cm in length. The left kidney is 10.7 cm in length. The spleen is normal. No ascites. IMPRESSION: 1. Normal complete abdominal ultrasound. This document has been electronically signed by: Deep Lanza MD on 03/22/2025 12:51:54
--- OUTSIDE RECORDS SUMMARY | 2025-03-21 12:28 | XMS_ITS | Patient Health Record ---
Author Organization [facility] Address [address] [place] [address] Care Team Providers Care Electronic Specialist Name Role Phone Bart HOWELL, [facility] Primary Care Provider Gerald Hays Jr Allergies Allergen (clinical drug ingredient) Drug/Non Drug Allergy documented on EMR Reaction Allergy Type Onset Date Status Penicillin Unknown Drug Allergy Active Cefzil Unknown Drug Allergy Active Results Component Value Reference Range Notes Lipase Reviewed date:02/28/2025 04:01:51 PM Interpretation: Performing Lab:[facility], [address] [place] [phone] Notes/Report: Lipase 22 8-78 U/L Complete Blood Count Auto Di ff Reviewed date:02/28/2025 03:59:06 PM Interpretation: Performing Lab:[facility], [address] [place] [phone] Notes/Report: White Blood Count 3.7 4.8-10.8 X10*3/uL Red Blood Count 4.94 4.60-5.80 X10*6/uL Hemoglobin 14.7 14.0-18.0 g/dl Hematocrit 42.5 42.0-52.0 % Mean Corpuscular Volume 86.0 80.0-98.0 fL Mean Corpuscular Hemoglobin 29.8 27.0-33.0 pg Mean Corpuscular HGB Conc 34.6 31.0-36.0 g/dl Red Cell Distribution Width 13.4 11.0-16.0 % Platelet Count 241 160-400 X10*3/uL Mean Platelet Volume 9.9 9.4-12.4 fL Neutrophils Percent Auto 47.0 45-73 % Imm Gran Pct Auto 0.3 0.0-0.4 % Lymphocytes Percent Auto 40.9 20-40 % Monocytes Percent Auto 8.3 2-11 % Eosinophils Percent Auto 2.7 0-4 % Basophils Percent Auto 0.8 0-2 % NRBC Pct Auto 0.0 0.0-0.2 /100WBC Neutrophils Absolute Auto 1.8 2.0-8.3 x10*3/u L Imm Gran Abs Auto 0.01 0.00-0.03 X10*3/uL Lymphocytes Absolute Auto 1.5 1.2-4.9 X10*3/u L Monocytes Absolute Auto 0.3 0.1-1.2 X10*3/uL Eosinophils Absolute Auto 0.1 0.0-0.4 X10*3/u L Basophils Absolute Auto 0.0 0.0-0.2 X10*3/uL NRBC Abs Auto 0.000 0.0-0.012 X10*3/uL Erythrocyte Sedimentation Ra te Reviewed date:02/28/2025 03:55:42 PM Interpretation: Performing Lab:[facility], [address] [place] [phone] Notes/Report: Erythrocyte Sedimentation Rate 2 0-15 MM/HR Patients with polycythemia and many hemoglobin abnormalities may have depressed sed rates whereas patients with anemia may have elevated sed rates. Liver Panel Reviewed date:02/28/2025 03:58:59 PM Interpretation: Performing Lab:[facility], [address] [place] [phone] Notes/Report: Bilirubin Total 0.7 0.0-1.0 mg/dL Bilirubin Direct 0.3 0.0-0.5 mg/dL Aspartate Amino Transferase 32 5-37 U/L Alanine Aminotransferase 32 0-40 U/L Total Protein 7.8 6.5-8.0 g/dL Albumin Level 5.0 3.5-5.0 g/dL Alkaline Phosphatase 49 39-117 U/L C Reactive Protein Reviewed date:02/28/2025 03:58:51 PM Interpretation: Performing Lab:[facility], [address] [place] [phone] Notes/Report: C Reactive Protein < 0.04 < or = 0.50 mg/dL Reason For Referral No Information Medications Medication [...] Notes: 04/03/19 he recently graduate d from [employer] with a degree in [employer] and [employer] management. He was looking for a job in the [facility] and is moving to [place] in April. 04/03/19 he recently graduate d from [employer] with a degree in [employer] and D[employer] management. He was looking for a job in the [facility] and is moving to [place] in April./ update 03/2020 works in [place] 04/03/19 he recently graduate d from [employer] with a degree in [employer] and [employer] management. He was looking for a job in the [facility] and is moving to [place] in April./ update 03/2020 works in [employer] 04/03/19 he recently graduate d from [employer] with a degree in [employer] and D[employer] management. He was looking for a job in the [facility] and is moving to [place] in April./ update 03/2020 works in [place] 04/03/19 he graduated from [employer] with a degree in finance and [employer] management. He was looking for a job in the [facility] and is moving to [place] in April./ update 03/2020 works in [place]. 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 Problems Problem Type SNOMED Code ICD Code Onset Dates Problem Status W/U Status Risk Notes Problem 921889536 Right lower quadrant pain (R10.31) Active confirmed Problem 425910104 Abdominal pain, right upper quadrant (R10.11) Active confirmed Problem 160736156 Irritable bowel syndrome with constipation (K58.1) Active confirmed Problem 31099152 Irritable bowel syndrome with both constipation and diarrhea (K58.2) Active confirmed Encounters Encounter Location Date Provider Diagnosis [facility] [address] [place] [address] 02/24/2025 Gerald Holbrook Jr Abdominal pain R10.9 [facility] [address] [place] [address] 02/28/2025 Gerald Holbrook Jr Assessments Encounter Date Diagnosis (ICD Code) Assessment Notes Treatment Notes Treatment Clinical Notes Section Notes 02/24/2025 Abdominal pain (ICD-10 - R10.9) Plan Of Treatment Pending Test Test Name Order Date LIVER PROFILE 02/24/2025 CRP 02/24/2025 CBC w/o DIFF 02/24/2025 SED RATE (ESR) 02/24/2025 US ABD 02/24/2025 Next Appt Details Provider Name:Gerald abebe Jr, 10/29/2025 09:00:00 AM, [address] [place] [address], [address], [place], [address], Insurance Providers Payer Name Payer Address Payer Phone Subscriber Number Group Number Insured Name Patient Relationship to Insured Coverage Start Date Coverage End Date [facility] [address] [place], [place] [id number] CARLOS SCHILLING Self - patient is the insured Medical (General) History Medical History History ICD Code Irritable bowel syndrome pneumonia x2 2018 Surgical History Surgery Date(Month/Year) tonsillectomy
== END 2025-03-21 11:33 | disposition home or self-care (01) ==
LOC: HO.US 11:32
PROVIDERS: PCP Nurse Practitioner Family; Visit Provider Internal Medicine Gastroenterology
DX: R10.9 Unspecified abdominal pain (principal)
CPT/HCPCS: 76700

== ENCOUNTER 2025-04-21 08:28 | Outpatient (AMB) | payer BC, SELFPAY ==
--- NOTE | 2025-04-21 08:35 | MHC.PC.OV ---
Vital Signs 04/21/25 08:36 Height 5 ft 11 in Weight 192 lb BMI 26.8 BP 120/74 Blood Pressure Location Lt brachial Position Sitting Pulse 65 Pulse Source Pulse Oximeter Pulse Oximetry (%) 98 Intake Visit Reasons: PE Transplanter Required: No Accompanied by: Self / Same As Patient Allergies amoxicillin Allergy (Unknown, Verified 04/21/25 08:44) Anaphylaxis penicillin V Allergy (Unknown, Verified 04/21/25 08:44) Anaphylaxis Cefzil Allergy (Unknown, Uncoded 04/21/25 08:44) Anaphylaxis Medication List - Last Reconciled 04/21/25 [facility] escitalopram oxalate 10 mg PO DAILY 90 days Tobacco use date assessed: 04/21/25 Dental Screening Dental Screen Date: 04/21/25 Did you have a dental visit in the last 12 months?: Yes Did you have a dental problem in the last 6 months where you did not have access to dental care?: No Was dental information given to patient?: Patient has dentist HPI PE HPI Details History of Present Illness The patient is a 29-year-old male presenting with right upper quadrant pain. The pain is exacerbated by large meals and is accompanied by slight rebound tenderness and tenderness upon deep palpation in the right upper quadrant. An ultrasound was previously conducted, showing no significant findings. The patient has a history of irritable bowel syndrome (IBS) but currently denies symptoms such as blood in stool, constipation, or diarrhea. He also denies chest pain, shortness of breath, or urinary issues. An inguinal hernia was observed during the examination, and ketoconazole was prescribed for treatment. Health Maintenance Social History Review of Systems - Gastrointestinal: Reports right upper quadrant pain, denies blood in stool, constipation, or diarrhea. - Cardiovascular: Denies chest pain. - Respiratory: Denies shortness of breath. - Genitourinary: Denies urinary issues. - Psychiatric: Denies suicidal or homicidal ideation. Physical Exam General: Cooperative, healthy appearing, comfortable, no acute distress and well developed Orientation: Patient oriented x3 Limitations: No limitations Head: Normal to inspection Ears: Hearing grossly normal bilaterally Nose: Normal external nose present Face and sinus: Normal facial exam Eyes: Appearance normal, both eyes and all related structures Neck: Normal visual inspection and Yes full ROM Respiratory: Normal respiratory effort and able to speak in complete sentences. Clear to auscultation bilaterally Cardiovascular: Regular rate and rhythm. Normal S1 and S2 GI: Slight rebound tenderness and tenderness with deep palpation in the right upper quadrant : Testicles without masses/lesions and inguinal hernia appreciated Skin: faint macular rash to inguinal regions (tinea) Neuro: Patient oriented x3 Extremities: Normal to inspection Results - Imaging: Previous ultrasound showed no significant findings. Plan The patient is scheduled for a gastroenterology consultation to further investigate the right upper quadrant pain, with consideration for a HIDA scan to evaluate gallbladder function. He will complete fasting laboratory tests today. Ketoconazole has been prescribed for the management of the inguinal hernia identified during the examination. Patient was informed and verbally consented to the use of an ambient scribe for clinic note documentation during this visit. Discussion Notes I discussed with the patient the potential for a gallbladder issue given his symptoms and the likelihood of undergoing a HIDA scan for further evaluation, he is following up with GI today. We also reviewed the plan for fasting labs today and the prescription of ketoconazole for the inguinal hernia. Patient Instructions - Follow up with the sales communications manager as scheduled. - Complete fasting labs today as planned. - Take ketoconazole as prescribed for the inguinal hernia. [facility] Surgical History S/P tonsillectomy Social History Household Members: Family Housing: House Alcohol intake: current Alcohol intake frequency: a few times a month Patient Tobacco Use Status: Never used Tobacco e-Cigarette/Vaping Use: Never Used Second Hand Smoke Exposure: No service: No Current occupational status: employed Current occupation: [employer] Current occupational exposures/hazards: No Cognitive needs: No Hearing needs: No Vision needs: No Questionnaire PHQ-9 Over the last 2 weeks, how often have you been bothered by any of the following problems? 1. Little interest or pleasure in doing things: not at all 2. Feeling down, depressed, or hopeless: not at all 3. Trouble falling or staying asleep, or sleeping too much: not at all 4. Feeling tired or having little energy: not at all 5. Poor appetite or overeating: not at all 6. Feeling bad about yourself - or that you are a failure or have let yourself or your family down: not at all 7. Trouble concentrating on things, such as reading the newspaper or watching television: not at all 8. Moving or speaking so slowly that other people could have noticed. Or the opposite - being so fidgety or restless that you have been moving around a lot more than usual: not at all 9. Thoughts that you would be better off or of hurting yourself in some way: not at all Total score: 0 Depression Screening Interpretation: Negative Depression Screening Done: Yes 99969 - PHQ-9 Billing: Yes Source: Developed by Drs. Gonzalo Whiting, Nona Salinas, Scotty Coates and colleagues, with an educational karina from [employer]. Thrive Questionnaire Date Thrive assessed: 04/21/25 I am a: Patient What is your living situation today?: I have a steady place to live Within the past 12 months, did the food you bought not last and you didn't have the money to get more?: Never true Within the past 12 months, did you worry whether your food would run out before you got money to buy more?: Never true Do you have trouble paying for medicines?: No Do you have trouble getting transportation to medical appointments?: No Do you have trouble paying your heating and electricity bill?: No Do you have trouble taking care of your child, family member or friend?: No Do you have trouble with day-to-day activities such as bathing, preparing meals, shopping, managing finances, etc.?: No Are you currently unemployed and looking for a job?: No Are you interested in more education?: No Please select the resources that you would like help with: None Currently or been in a relationship where the following occur: No concerns reported THRIVE Score: 0 AUDIT C Alcohol Use Questionnaire (AUDIT-C) 1. How often do you have a drink containing alcohol?: Monthly or less 2. How many drinks containing alcohol do you have on a typical day when you are drinking?: 1 or 2 3. How often do you have six or more drinks on one occasion?: Less than monthly Total Score: 2 Score Reviewed/Action Taken: Yes FUAD-7 AMB Questionnaire FUAD-7 Date FUAD - 7 assessed: 04/21/25 Feeling nervous, anxious, or on edge: 1 = Several days Not being able to stop or control worryin = Not at all Worrying too much about different things: 0 = Not at all Trouble relaxin = Not at all Being so restless that it is hard to sit still: 0 = Not at all Becoming easily annoyed or irritable: 0 = Not at all Feeling afraid as if something awful might happen: 0 = Not at all Total FUAD-7 score (0-4 normal; 5-9 mild; 10-14 moderate; 15-21 severe): 1 Source: Developed by Drs. Gonzalo Whiting, Nona Salinas, Scotty Coates and colleagues, with an educational karina from [employer]. FUAD-7 Assessment Billing FUAD-7 Assessment Tool: FUAD-7 Assessment 72611 Physical exam (Primary Care) Vital Signs: Last Vital Signs Pulse 65 04/21/25 08:36 BP 120/74 04/21/25 08:36 Pulse Ox 98 04/21/25 08:36 BMI result Body Mass Index 26.8 Tobacco/Smoking Status: Tobacco use Status Tobacco use date assessed 04/21/25 04/21/25 08:39 Patient Tobacco Use Status Never used Tobacco 04/21/25 08:39 e-Cigarette/Vaping Use Never Used 04/21/25 08:39 PHQ-9: PHQ-9 Score PHQ-9: Total score 0 04/21/25 08:39 Depression Screening Interpretation: Negative Thrive Assessment: Date of Thrive Assessment Date Thrive assessed 04/21/25 04/21/25 08:39 Currently or been in a relationship where the following occur: No concerns reported Coding Level of Care Code Est Pt Prev Care 18-39y(68711) Diagnoses Encounter for routine adult physical exam with abnormal findings Z. Additional Codes FUAD-7 Assessment Billing - FUAD-7 Assessment Tool: FUAD-7 Assessment 85383 ([id number]) PHQ-9 - 43583 - PHQ-9 Billing: Yes ([id number]) Assessment & Plan Assessment & Plan (1) Encounter for routine adult physical exam with abnormal findings: Code(s): Z00.01 - Encounter for general adult medical examination with abnormal findings Category: Medical Plan . Orders: Orders Complete Blood Count Auto Diff Today Z00.00 - Encounter for general adult medical examination without abnormal findings Comprehensive [place]. Panel Fast Today Z00.00 - Encounter for general adult medical examination without abnormal findings Lipid Panel Today Z00.00 - Encounter for general adult medical examination without abnormal findings TSH reflex Free T4 Today Z00.00 - Encounter for general adult medical examination without abnormal findings UA CC w/rflx Micro + Cult Today Z00.00 - Encounter for general adult medical examination without abnormal findings Medications: New ketoconazole 2% 1 appl topical DAILY 30 grams 0RF
--- OUTSIDE RECORDS SUMMARY | 2025-04-21 08:35 | XMS_ITS | Clinical Summary ---
Author Organization [facility] Address [address] [place] [address] Care Team Providers Care Ems Manager Name Role Phone Unavailable Primary Care Provider [...] - 19+ 3-dose series) 2015 COVID-19 Vaccine ( - 2023-2 5 season) 2024 Influenza Vaccine (#1) 2025 HIB Vaccines Aged Out No longer [...] 5 Years) and At-Risk Patients (6 to 49 Years) Aged Out No longer eligible b ased on patient's age to complete this topic RSV Immunization Patients Un breezy 20 months Aged Out No longer eligible b ased on patient's age to complete this topic Varicella Vaccines Aged Out No longer eligible based on patient's age to complete this topic
--- OUTSIDE RECORDS SUMMARY | 2025-04-21 08:35 | XMS_ITS | Patient Health Record ---
Author Organization [facility] Address [address] [place] [address] Care Team Providers Care Software Development Intern Name Role Phone Bart HOWELL, [facility] Primary [facility] Provider Gerald Hays Jr [phone] Allergies Allergen (clinical drug ingredient) Drug/Non Drug Allergy documented on EMR Reaction Allergy Type Onset Date Status Penicillin Unknown Drug Allergy Active Cefzil Unknown Drug Allergy Active Results Component Value Reference Range Notes Lipase Reviewed date:02/28/2025 04:01:51 PM Interpretation: Performing Lab:[facility], [address] [place] [phone] Notes/Report: Lipase 22 8-78 U/L Complete Blood Count Auto Di ff Reviewed date:02/28/2025 03:59:06 PM Interpretation: Performing Lab:[facility], [address] [place] [phone] Notes/Report: White Blood Count 3.7 4.8-10.8 X10*3/uL [...] te Reviewed date:02/28/2025 03:55:42 PM Interpretation: Performing Lab:[facility], [address] [place] [phone] Notes/Report: Erythrocyte Sedimentation Rate 2 0-15 MM/HR Patients with polycythemia and many hemoglobin abnormalities may have depressed sed rates whereas patients with anemia may have elevated sed rates. Liver Panel Reviewed date:02/28/2025 03:58:59 PM Interpretation: Performing Lab:[facility], [address] [place] [phone] Notes/Report: Bilirubin Total 0.7 0.0-1.0 mg/dL Bilirubin Direct 0.3 0.0-0.5 mg/dL Aspartate Amino Transferase 32 5-37 U/L Alanine Aminotransferase 32 0-40 U/L Total Protein 7.8 6.5-8.0 g/dL Albumin Level 5.0 3.5-5.0 g/dL Alkaline Phosphatase 49 39-117 U/L C Reactive Protein Reviewed date:02/28/2025 03:58:51 PM Interpretation: Performing Lab:[facility], [address] [place] [phone] Notes/Report: C Reactive Protein < 0.04 < or = 0.50 mg/dL US abdomen complete Reviewed date:03/24/2025 08:38:35 AM Interpretation: Performing Lab: Notes/Report: [address] [address] Ultrasound Report Signed Patient: Nikhil Schilling V MR#: [id number] 0 : 1995 Acct:[id number] Age/Sex: 29 / M ADM Date: 03/21/25 Loc: HO.US Attending Dr: Gerald Holbrook MD Ordering Physician: Gerald Holbrook MD Date of Service: 03/21/25 Procedure(s): US abdomen complete Accession Number(s): [id number] cc: Gerald Holbrook MD; Marco Antonio Huff [facility] CLINICAL HISTORY: abd. pain US abdomen complete Comparison: None Findings: The visualized pancreas is normal. The aorta and inferior vena cava are normal caliber. The liver is normal in size and echotexture. There is no intrahepatic bile duct dilatation. The common duct is 1.6 mm in diameter. The gallbladder is normal. There is no sonographic Pereyra sign. The main portal vein is antegrade. The right kidney is 12.0 cm in length. The left kidney is 10.7 cm in length. The spleen is normal. No ascites. IMPRESSION: 1. Normal complete abdominal ultrasound. This document has been electronically signed by: Deep Lanza MD on 03/22/2025 12:51:54 Dictated By: Deep Lanza MD Signed By: <Electronically signed by Deep Lanza MD in OV> 03/22/25 1252 DD/ 1251 TD/TT: 03/22/25 1251 Reporting Manager: Reason For Referral No Information Medications Medication [...] Notes: 04/03/19 he recently graduate d from [employer] with a degree in [employer] and [employer]. He was looking for a job in the [facility] and is moving to [place] in April. 04/03/19 he recently graduate d from [employer] with a degree in [employer] and [employer]. He was looking for a job in the [facility] and is moving to [place] in April./ update 03/2020 works in [employer] 04/03/19 he recently graduate d from [employer] with a degree in [employer] and [employer] management. He was looking for a job in the [facility] and is moving to [place] in April./ update 03/2020 works in [employer] 04/03/19 he recently graduate d from [employer] with a degree in [employer] and [employer] management. He was looking for a job in the [facility] and is moving to [place] in April./ update 03/2020 works in [employer] 04/03/19 he graduated from [employer] with a degree in finance and [employer] management. He was looking for a job in the [facility] and is moving to [place] in April./ update 03/2020 works in [employer]. 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 Problems Problem Type SNOMED Code ICD Code Onset Dates Problem Status W/U Status Risk Notes Problem 859107621 Right lower quadrant pain (R10.31) Active confirmed Problem 854176536 Abdominal pain, right upper quadrant (R10.11) Active confirmed Problem 960608280 Irritable bowel syndrome with constipation (K58.1) Active confirmed Problem 39362784 Irritable bowel syndrome with both constipation and diarrhea (K58.2) Active confirmed Encounters Encounter Location Date Provider Diagnosis [facility] [address] [place] [address] 02/24/2025 Gerald Holbrook Jr Abdominal pain R10.9 [facility] [address] [place] [address] 02/28/2025 Gerald Holbrook Jr [facility] [address] [place] [phone] 03/24/2025 Gerald Holbrook Jr Assessments Encounter Date Diagnosis (ICD Code) Assessment Notes Treatment Notes Treatment Clinical Notes Section Notes 02/24/2025 Abdominal pain (ICD-10 - R10.9) Plan Of Treatment Pending Test Test Name Order Date LIVER PROFILE 02/24/2025 CRP 02/24/2025 CBC w/o DIFF 02/24/2025 SED RATE (ESR) 02/24/2025 US ABD 02/24/2025 Next Appt Details Provider Name:Gerald abebe Jr, 04/21/2025 01:55:00 PM, [address] [place] [address], [address] [facility], [place], [address], Provider Name:Gerald abebe Jr, 10/29/2025 09:00:00 AM, [address] [place] [address], [address], [place], [address], Insurance Providers Payer Name Payer Address Payer Phone Subscriber Number Group Number Insured Name Patient Relationship to Insured Coverage Start Date Coverage End Date [facility] [address] [place], [place] [id number] [phone] [id number] NIKHIL SCHILLING Self - patient is the insured Medical (General) History Medical History History ICD Code Irritable bowel syndrome pneumonia x2 2018 Surgical History Surgery Date(Month/Year) tonsillectomy
[2025-04-21 08:36] VITALS: BP 120/74; PULSE 65; O2SAT 98; BMI 26.8
== END 2025-04-21 09:10 | disposition home or self-care (01) ==
LOC: HO.HMCC 08:29
PROVIDERS: PCP Nurse Practitioner Family; Visit Provider Nurse Practitioner Family
DX: Z00.01 Encounter for general adult medical examination with abnormal findings (principal)

== ENCOUNTER → 2025-04-21 08:28 | Outpatient (BNVA) | payer BC, SELFPAY | PROVIDERS: PCP Nurse Practitioner Family; Visit Provider Nurse Practitioner Family | DX: Z00.01 Encounter for general adult medical examination with abnormal findings (principal); K40.90 Unilateral inguinal hernia, without obstruction or gangrene, not specified as recurrent; Z13.31 Encounter for screening for depression; Z13.30 Encounter for screening examination for mental health and behavioral disorders, unspecified | CPT/HCPCS: 96127 ==

== ENCOUNTER → 2025-05-09 07:59 | Outpatient (REF) | payer BC, SELFPAY ==
--- NOTE | ~2025-05-09 | NM_ITS ---
EXAMINATION: NM BILIARY TRACT CLINICAL INFORMATION: Right upper quadrant pain. COMPARISON: Ultrasound abdomen 03/21/2025. TECHNIQUE: Following intravenous administration of 5 mCi of technetium 99m mebrofenin, imaging over the right upper quadrant was obtained up to 60 minutes. At 30 minutes 1.76 mcg of CCK was given and further imaging was obtained for next 30 minutes. FINDINGS: There is normal hepatic uptake with prompt visualization of gallbladder by 8 to 10 minutes. Small bowel is visualized by 22 minutes. Post-CCK, The gallbladder ejection fraction at 10 minutes is 6%, The gallbladder ejection at 20 minutes is 36% and The gallbladder ejection fraction at 30 minutes is eccentric 69 %. NM/NM hepatobiliary w pharm IMPRESSION : Normal gallbladder ejection fraction of 69% at 30 minutes. Normal hepatic uptake. Patent cystic duct and CBD. Electronically signed by: Jacky Mckeon MD 05/09/2025 01:03 PM EDT
--- OUTSIDE RECORDS SUMMARY | 2025-05-09 08:02 | XMS_ITS | Patient Health Record ---
Author Organization [facility] Address [address] [place] [address] Care Team Providers Care Manufacturing Quality Engineer Name Role Phone Bart HOWELL, [facility] Primary Care Provider Gerald Hays Jr Allergies Allergen (clinical drug ingredient) Drug/Non Drug Allergy documented on EMR Reaction Allergy Type Onset Date Status Penicillin Unknown Drug Allergy Active Cefzil Unknown Drug Allergy Active Results Component Value Reference Range Notes Lipase Reviewed date:02/28/2025 04:01:51 PM Interpretation: Performing Lab:[facility], [address] [place] [phone] Notes/Report: Lipase 22 8-78 U/L Complete Blood Count Auto Di ff Reviewed date:02/28/2025 03:59:06 PM Interpretation: Performing Lab:[facility], [address] [place] [phone] Notes/Report: White Blood Count 3.7 4.8-10.8 X10*3/uL [...] te Reviewed date:02/28/2025 03:55:42 PM Interpretation: Performing Lab:[facility], [address] [place] [phone] Notes/Report: Erythrocyte Sedimentation Rate 2 0-15 MM/HR Patients with polycythemia and many hemoglobin abnormalities may have depressed sed rates whereas patients with anemia may have elevated sed rates. Liver Panel Reviewed date:02/28/2025 03:58:59 PM Interpretation: Performing Lab:[facility], [address] [place] [phone] Notes/Report: Bilirubin Total 0.7 0.0-1.0 mg/dL Bilirubin Direct 0.3 0.0-0.5 mg/dL Aspartate Amino Transferase 32 5-37 U/L Alanine Aminotransferase 32 0-40 U/L Total Protein 7.8 6.5-8.0 g/dL Albumin Level 5.0 3.5-5.0 g/dL Alkaline Phosphatase 49 39-117 U/L C Reactive Protein Reviewed date:02/28/2025 03:58:51 PM Interpretation: Performing Lab:[facility], [address] [place] [phone] Notes/Report: C Reactive Protein < 0.04 < or = 0.50 mg/dL US abdomen complete Reviewed date:03/24/2025 08:38:35 AM Interpretation: Performing Lab: Notes/Report: [address] [address] Ultrasound Report Signed Patient: Nikhil Schilling V MR#: [id number] 0 : 1995 Acct:[id number] Age/Sex: 29 / M ADM Date: 03/21/25 Loc: HO.US Attending Dr: Gerald Holbrook MD Ordering Physician: Gerald Holbrook MD Date of Service: 03/21/25 Procedure(s): US abdomen complete Accession Number(s): [id number] cc: Gerald Holbrook MD; Marco Antonio Huff [facility] CLINICAL HISTORY: abd. pain US abdomen [...] 03/22/25 1252 DD/ 1251 TD/TT: 03/22/25 1251 [place]: Reason For Referral No Information Medications Medication SIG (Take, Route, Frequency, Duration) Notes Start Date End Date Status Omeprazole 40 MG 1 capsule 1/2 to 1 h our before morning meal Orally Once a day for 30 days 04/21/2025 Active Dicyclomine HCl 20 MG 1 tablet Orally 2- 4 times a day Not-Taking Escitalopram Oxalate 10 MG TK 1 T PO QD Oral for 30 Active Immunizations Vaccine Route Administration Date Status [...] Notes: 04/03/19 he recently graduate d from [employer] with a degree in [employer] and [employer]. He was looking for a job in the [employer] and is moving to [place] in April. 04/03/19 he recently graduate d from [employer] with a degree in [employer] and [employer]. He was looking for a job in the [employer] and is moving to [place] in April./ update 03/2020 works in [employer] 04/03/19 he recently graduate d from [employer] with a degree in [employer] and [employer]. He was looking for a job in the [employer] and is moving to [place] in April./ update 03/2020 works in [employer] 04/03/19 he recently graduate d from [employer] with a degree in [employer] and [employer] management. He was looking for a job in the [employer] and is moving to [place] in April./ update 03/2020 works in [employer] 04/03/19 he graduated from [employer] with a degree in [employer] and [employer] management. He was looking for a job in the [employer] and is moving to [place] in April./ update 03/2020 works in [employer]. 11/01 currently working in [employer] in the [employer] field. 04/03/19 he graduated from [employer] with a degree in [employer] and [employer] management. He was looking for a job in the [employer] and is moving to [place] in April./ update 03/2020 works in [employer]. 11/01 currently working in [employer] in the [employer]. Problems Problem Type SNOMED Code ICD Code Onset Dates Problem Status W/U Status Risk Notes Problem 827783289 Right lower quadrant pain (R10.31) Active confirmed Problem 222283284 Irritable bowel syndrome with constipation (K58.1) Active confirmed Problem 67407626 Irritable bowel syndrome with both constipation and diarrhea (K58.2) Active confirmed Problem RUQ pain (R10.11) Active confirmed Vital Signs Temperature 96.9 degrees Fahrenheit 04/21/2025 Blood pressure diastolic 01 mm Hg 04/21/2025 Height 71 in 04/21/2025 Blood pressure systolic 001 mm Hg 04/21/2025 Weight 192.4 lbs 04/21/2025 BMI 26.83 kg/m2 04/21/2025 Encounters Encounter Location Date Provider Diagnosis [facility] [address] [place] [address] 04/21/2025 Gerald Holbrook Jr RUQ pain R10.11 [facility] [address] [place] [address] 02/24/2025 Gerald Holbrook Jr Abdominal pain R10.9 [facility] [address] [place] [address] 02/28/2025 Gerald Holbrook Jr [facility] [address] [place] [address] 03/24/2025 Gerald Holbrook Jr Assessments Encounter Date Diagnosis (ICD Code) Assessment Notes Treatment Notes Treatment Clinical Notes Section Notes 04/21/2025 RUQ pain (ICD-10 - R10.11) We discussed his symptoms today. We reviewed lab work and imaging studies. He will have further evaluation with CCK HIDA scanning and begin omeprazole 40 mg daily. He will let us know in a month how he is doing. He will also use simethicone in case there is a component of gas. He may need endoscopy pending his clinical response. 02/24/2025 Abdominal pain (ICD-10 - R10.9) Plan Of Treatment Pending Test Test Name Order Date LIVER PROFILE 02/24/2025 CRP 02/24/2025 CBC w/o DIFF 02/24/2025 SED RATE (ESR) 02/24/2025 US ABD 02/24/2025 HIDA SCAN GB WITH CCK 04/21/2025 Next Appt Details Provider Name:Gerald abebe Jr, 10/29/2025 09:00:00 AM, [address] [facility], [address], [place], [address], Insurance Providers Payer Name Payer Address Payer Phone Subscriber Number Group Number Insured Name Patient Relationship to Insured Coverage Start Date Coverage End Date [facility] [address] [place], [place] [id number] NIKHIL SCHILLING Self - patient is the insured 2 4 Medical (General) History Medical History History ICD Code Irritable bowel syndrome pneumonia x2 2018 Surgical History Surgery Date(Month/Year) tonsillectomy
--- OUTSIDE RECORDS SUMMARY | 2025-05-09 08:02 | XMS_ITS | Clinical Summary ---
Author Organization [facility] it[facility] Address [address] [place] [address] Care Team Providers Care Tow Motor Driver Name Role Phone Unavailable Primary Care Provider [...] Vaccine ( - 2023-2 5 season) 2024 Depression Screening 10/09/2024 Influenza Vaccine (#1) 2025 HIB Vaccines Aged [...]
== END ==
LOC: HO.NUCMED 07:59
PROVIDERS: PCP Nurse Practitioner Family; Visit Provider Internal Medicine Gastroenterology
DX: R10.11 Right upper quadrant pain (principal)
CPT/HCPCS: 78227; A9537; J2805

== ENCOUNTER → 2025-05-09 08:05 | Outpatient (BNV) | payer BC, SELFPAY | PROVIDERS: PCP Nurse Practitioner Family; Visit Provider Radiology Diagnostic Radiology | DX: R10.11 Right upper quadrant pain (principal) | CPT/HCPCS: 78227 ==